=== PATIENT | female | born 1945 | race Caucasian/White ===

== ENCOUNTER 2025-07-27 14:56 | Emergency (ER) | payer MEDICARE | END 2025-07-27 15:56 | disposition home or self-care (01) | LOC: CSHERS 14:56 | DX: S81.851A Open bite, right lower leg, initial encounter (principal); L03.90 Cellulitis, unspecified; Z55.6 Problems related to health literacy; W55.01XA Bitten by cat, initial encounter | CPT/HCPCS: 99283 ==